=== PATIENT | male | born 1995 | race Caucasian/White ===

== ENCOUNTER 2023-09-15 09:13 | Emergency (ER) | payer OTHER, SELFPAY ==
[2023-09-15 09:17] VITALS: BP 155/115
--- NOTE | 2023-09-15 10:42 | ED.GENMED ---
History of Present Illness
General
Chief Complaint: Back Pain
Source: patient
Exam Limitations: none
Time Seen by Provider: 09/15/23 09:41
Nursing documentation reviewed up to this point in time: agreed with
Travel History
Have you had any contact with someone who has COVID-19?: No
Do you have any symptoms of coronavirus? Fever > 100 degrees, chills, cough, shortness of breath, sore throat, loss of taste or smell, muscle aches, or headache?: No
History of Present Illness
History of Present Illness:
27-year-old male presents to the ER complaining of left-sided back pain which radiates to his left buttocks down his left leg. He has had back issues off and on for the past 6 months with intermittent radiation down his left leg. He has been seen
by his family doctor for this several times and given steroids. He reports when symptoms occur like this steroids give him relief. He has a prescription for an MRI but has not set it up yet he was having difficulty doing so. He denies any loss of
bowel or bladder. Denies any weakness to left leg. He does feel intermittent numbness.
Review of Systems
Review of Systems
Allergies reviewed?: Yes
All Other Systems: ROS reviewed and negative except as documented in HPI and ROS
Constitutional: Reports no symptoms; Denies fever, fatigue or chills
Respiratory: Reports no symptoms
ABD/GI: Reports no symptoms
: Denies incontinence
Musculoskeletal: Reports back pain and other (left sided low back pain that radiates to left leg )
Skin: Reports no symptoms
Neurological: Reports no symptoms
Hematologic/Lymphatic: Reports no symptoms
Psychiatric: Reports no symptoms
Phy Exam
General Physical Exam
General Presentation: no apparent distress
General age: appears stated age
General Skin: warm and dry
General Habitus: normal
General Mental: alert
General Hydration: appears well hydrated
Neurological Exam
Neurological Exam: alert, oriented x3 and other (nml dorsiflexion/plantar flexion to b/l l/e with nml sensation ; nml heel /toe walking )
Musculoskeletal Exam
Musculoskeletal Exam: other (nml inspection to back, tender over left buttocks region )
Skin Exam
Skin Exam: normal color and warm/dry
Psychiatric Exam
Psychiatric Exam: normal mood/affect
Course
Orders/Labs/Results
Orders:
Orders
09/15/23 10:41
Dexamethasone Sod Phosphate [Decadron] 10 mg IM NOW STA
Ibuprofen [Motrin] 600 mg PO NOW STA
09/15/23 10:42
Vital Capacity [RESP] Urgent
Quantity: 1
Vital Signs
Initial and Last Documented VS:
Initial Vital Signs
Temp Pulse Resp BP Pulse Ox
98.1 F 88 20 155/115 98
09/15/23 09:17 09/15/23 09:17 09/15/23 09:17 09/15/23 09:17 09/15/23 09:17
Last Documented Vital Signs
Temp Pulse Resp BP Pulse Ox
98.1 F 88 20 155/115 98
09/15/23 09:17 09/15/23 09:17 09/15/23 09:17 09/15/23 09:17 09/15/23 09:17
MDM/Problems Addressed
Differential Diagnosis Includes:
not limited to: sciatica, low back pain
MDM/Problems Addressed:
Symptoms are consistent with sciatica. Patient with no neurological deficits. Patient has an order for MRI will DC with Ortho with steroid prescription as this helped him in the past. Discussed return if any worsening of symptoms.
*Critical Care Note
Total Time (30-74mins, 75-104mins- exclusive of procedures): Not Applicable
ED Attending Note
-
Portions of this chart may have been created with voice recognition software.� Occasional wrong word or��sound alike� substitutions may have occurred due to the inherent limitations of voice recognition software.
Discharge Plan
Departure
Patient Disposition: Home (Routine Discharge)
Date of Disposition: 09/15/23
Time of Disposition: 10:52
Patient with high blood pressure during this ER visit?: Yes
Condition: Fair
Covid-19: Not Applicable
Discharge Problem:
Sciatica
Instructions: Low Back Pain (DC), Sciatica (DC), BLOOD PRESSURE
Prescriptions:
New
prednisone 10 mg Tablet
See Rx Instructions .ROUTE .COMPLEX Qty: 30 0RF
Rx Instructions:
Take By Mouth:
40 mg daily x3 days, 30 mg daily x3 days,
20 mg daily x3 days, 10 mg daily x3 days.
Referrals:
Aldair Wright DO [Family Provider] -
Leobardo Phillips MD [Active] -
Activity Restrictions/Additional Instructions:
Follow-up with your family doctor as well as orthopedics in the next several days. Steroids as directed starting tomorrow. This medication were sent to your pharmacy. Return if any worsening of symptoms if loss of bowel or bladder worsening pain
weakness in left lower extremity or any further concerns.
[2023-09-15 11:00] VITALS: BP 137/96
[2023-09-15] MEDS: MOTRIN 600 MG PO (11:03)
[2023-09-15] MEDS: DECADRON 10 MG IM (11:03)
== END 2023-09-15 11:35 | disposition home or self-care (01) ==
LOC: EMR 09:13
PROVIDERS: EMERGENCY PHYSICIAN Student in an Organized Health Care Education/Training Program; FAMILY PHYSICIAN Family Medicine
DX: M54.40 Lumbago with sciatica, unspecified side (principal)
CPT/HCPCS: 99282; 96372

== ENCOUNTER 2024-07-26 13:09 | Emergency (ER) | payer OTHER, SELFPAY ==
[2024-07-26 13:11] VITALS: BP 164/109
[2024-07-26 13:42] LABS: % Basophils 0.6 % (0-2); % Eosinophils 3.6 % (0-6); % Immature Granulocytes 0.4 % (0-0.5); % Lymphocytes 28.9 % (20.5-51.1); % Neutrophils 57.5 % (42.2-75.2); Absolute Eosinophils 0.2 10^3/uL (0-0.7); Absolute Lymphocytes 1.4 10^3/uL (1.2-3.4); Absolute Monocytes 0.5 10^3/uL (0.1-0.6); Absolute Neutrophils 2.9 10^3/uL (1.4-6.5); Hematocrit 42.2 % (39.0-52.0); Hemoglobin 14.2 g/dL (13.0-18.0); Mean Corp Hgb Conc. 33.6 g/dL (33.0-37.0); Mean Corpuscular Hgb 29.7 pg (27.0-31.0); Mean Corpuscular Volume 88.3 fL (80.0-94.0); Nucleated Red Blood Cells % 0 % (-); Platelet Count 278 10^3/uL (130-400); Red Blood Cell Count 4.78 10^6/uL (4.70-6.10); Red Cell Dist. Width 12.4 % (11.5-14.5)
[2024-07-26 13:54] LABS: ALT (SGPT) 65 U/L (0-50); AST (SGOT) 43 U/L (17-59); Albumin 4.5 g/dl (3.5-5.0); Alkaline Phosphatase 48 U/L (38-126); Blood Urea Nitrogen 16 mg/dl (9-20); Calcium 9.5 mg/dl (8.4-10.2); Carbon Dioxide 30 mmol/L (22-30); Chloride 102 mmol/L (98-107); Glucose 96 mg/dl (70-99); Lipase 53 U/L (23-300); Potassium 4.1 mmol/L (3.5-5.1); Sodium 140 mmol/L (135-145); Total Bilirubin 0.6 mg/dl (0.2-1.3); eGFR > 60.00
[2024-07-26 14:05] LABS: Troponin I < 0.012 ng/ml
--- NOTE | 2024-07-26 14:52 | ED.GENMED ---
History of Present Illness
General
Chief Complaint: Blood Pressure Problem
Time Seen by Provider: 07/26/24 14:08
History of Present Illness
History of Present Illness:
28-year-old male presents to the emergency department for evaluation of persistent headache for the past several weeks as well as intermittent nausea vomiting diarrhea for the past week. He does admit that his blood pressure has been elevated and
he is not taking his blood pressure medication as often as he is recommended, he is prescribed 5 mg of amlodipine daily. Denies any vision changes, neck pain, night sweats, or weight loss. Headache does seem to improve with [id number]
analgesics but returns shortly thereafter. He also indicates occasional nonexertional chest pain that occur particularly at rest
Review of Systems
Review of Systems
Allergies reviewed?: Yes
All Other Systems: ROS reviewed and negative except as documented in HPI and ROS
Phy Exam
Physical Exam
Physical Exam:
GEN: Well appearing, NAD, WDWN
HEENT: Oral mucosa moist, no scleral icterus
Cardiac: Regular rate
Lung: No respiratory distress, no tachypnea
MSK: No gross deformity or injuries
Skin: Good color, no pallor or jaundice, no rashes
Neuro: AO x3, cranial nerves II through XII grossly intact, moves all extremities freely, normal gait
Psych: Calm, cooperative
Course
Orders/Labs/Results
Orders:
Orders
07/26/24 13:10
ECG [Electrocardiogram (*1)] Urgent
Reason for Study: Chest Pain
EKG- Treatment ONCE
07/26/24 13:33
Complete Blood Count/With Diff Urgent
Comprehensive Metabolic Panel Urgent
Lipase Urgent
Troponin I Urgent
07/26/24 14:19
CT Head W/o Iv Contrast Urgent
Comment:
Reason For Exam: persistent headaches
Abnormal Lab Results
07/26/24
13:33
ALT 65 H U/L
(0-50)
07/26/24 13:33
07/26/24 13:33
Vital Signs
Initial and Last Documented VS:
Initial Vital Signs
Temp Pulse Resp BP Pulse Ox
98.0 F 82 18 164/109 100
07/26/24 13:11 07/26/24 13:11 07/26/24 13:11 07/26/24 13:11 07/26/24 13:11
Last Documented Vital Signs
Temp Pulse Resp BP Pulse Ox
98.0 F 87 16 148/100 100
07/26/24 13:11 07/26/24 15:41 07/26/24 15:41 07/26/24 15:41 07/26/24 13:11
MDM/Problems Addressed
MDM/Problems Addressed:
In regards to the patient's headaches and was identified to have a moderately large arachnoid cyst on head CT. At this time he has no neurologic deficits thus is suitable for outpatient MRI and neurosurgical consultation as this is likely the
provoking cause of his headaches. In regards to his blood pressure there is no evidence of endorgan damage and he is strongly encouraged to restart amlodipine as soon as possible.
*Critical Care Note
Total Time (30-74mins, 75-104mins- exclusive of procedures): Not Applicable
ED Attending Note
-
Portions of this chart may have been created with voice recognition software.� Occasional wrong word or��sound alike� substitutions may have occurred due to the inherent limitations of voice recognition software.
Discharge Plan
Departure
Patient Disposition: Home (Routine Discharge)
Date of Disposition: 07/26/24
Time of Disposition: 15:07
Patient with high blood pressure during this ER visit?: Yes
Discharge Problem:
Hypertension, uncontrolled, Arachnoid cyst
Instructions: High Blood Pressure (DC)
Prescriptions:
No Action
prednisone 10 mg Tablet
See Rx Instructions .ROUTE .COMPLEX Qty: 30 0RF
Rx Instructions:
Take By Mouth:
40 mg daily x3 days, 30 mg daily x3 days,
20 mg daily x3 days, 10 mg daily x3 days.
Referrals:
Marifer WALSH [Other]
Laureen Metcalf MD [Active] -
Activity Restrictions/Additional Instructions:
Restart your blood pressure medicines
Contact your primary care physician to discuss an outpatient Brain MRI to further assess the abnormality on your CT scan, which is likely a benign cyst
Follow up with neurosurgery after completion of the MRI to discuss if any treatment is necessary
Interventions
Interventions:
*Risk Screen - Suicide Last Done: 07/26/24 13:11
*General Assessment Last Done: 07/26/24 13:11
*Neglect/Abuse Screening Last Done: 07/26/24 13:11
*ED COVID-19 Vaccine History Last Done: 07/26/24 13:11
*Nursing Disposition Last Done: 07/26/24 15:42
ED- Cardiac Assessment Last Done: 07/26/24 14:03
ED- Neurological Assessment Last Done: 07/26/24 14:03
ED- Pulmonary Assessment Last Done: 07/26/24 14:03
Discharge Date and Time
Discharge Date/Time: 07/26/24 15:42
Print Language: SPANISH
[2024-07-26 15:41] VITALS: BP 148/100
== END 2024-07-26 15:42 | disposition home or self-care (01) ==
LOC: EMR 13:09
PROVIDERS: Emergency Medicine; EMERGENCY PHYSICIAN Student in an Organized Health Care Education/Training Program
DX: I10 Essential (primary) hypertension (principal); G93.0 Cerebral cysts; R07.9 Chest pain, unspecified
CPT/HCPCS: 99284; 70450; 80053; 83690; 84484; 85025; 93005